=== PATIENT | female | born 1945 | race Caucasian/White ===

== ENCOUNTER 2023-02-20 18:38 | Emergency (ER) | payer OTHER, BC ==
[2023-02-20 19:09] VITALS: TEMP 98; BMI 35.4
[2023-02-20] MEDS ORDERED: AZITHROMYCIN 500 MG TABLET PO ONE (19:10)
[2023-02-20] MEDS ORDERED: AZITHROMYCIN 250 MG TABLET ONE (19:32)
[2023-02-20 19:52] LABS: HEMATOCRIT 41.8 % (32.4-45.2); HEMOGLOBIN 14.3 G/dL (10.7-15.3); MCH 31.2 pg (25.7-33.7); MCHC 34.1 g/dl (32.0-36.0); MEAN CELL VOLUME 91.4 fl (80-96); MEAN PLT VOLUME 8.4 fl (7.5-11.1); RBC 4.57 10^6/uL (3.60-5.2); RDW 14.5 % (11.6-15.6); WHITE BLOOD COUNT 9.5 10^3/uL (4.0-10.8)
[2023-02-20 20:01] LABS: ALBUMIN 3.9 g/dl (3.4-5.0); BILIRUBIN,TOTAL 0.6 mg/dl (0.2-1); CALCIUM 9.8 mg/dl (8.5-10); CREATININE 0.7 mg/dl (0.55-1.3); TOT PROT 6.8 g/dl (6.4-8.2)
[2023-02-20] MEDS ORDERED: methylPREDNISolone NA SUCC 125 MG/2 ML VIAL IVPB ONE (20:04)
[2023-02-20] MEDS ORDERED: methylPREDNISolone NA SUCC 125 MG/2 ML VIAL ONE (20:11)
[2023-02-20] MEDS ORDERED: ALBUTEROL SO4 2.5/IPRATROPIUM 0.5 INH SOL 3 ML VIAL.NEB. NEB STA (20:31)
[2023-02-20] MEDS ORDERED: ALBUTEROL SO4 2.5/IPRATROPIUM 0.5 INH SOL 3 ML VIAL.NEB. NEB ONE (20:33)
[2023-02-20 21:09] VITALS: BP 122/84; PULSE 87; RESP 22
[2023-02-20 21:42] LABS: VENOUS BASE EXCESS -1.1 mmol/L (-2-2); VENOUS PCO2 42.2 mmHg (38-52); VENOUS PH 7.375 (7.310-7.410)
== END 2023-02-20 22:42 | disposition left against medical advice (07) ==
LOC: FER 18:38
PROC: 3E0F7GC Introduction of Other Therapeutic Substance into Respiratory Tract, Via Natural or Artificial Opening (ICD-10-PCS; principal; 2023-02-20)
PROC: 3E033GC Introduction of Other Therapeutic Substance into Peripheral Vein, Percutaneous Approach (ICD-10-PCS; 2023-02-20)
DX: U07.1 COVID-19 (principal); I50.9 Heart failure, unspecified; R05.3 Chronic cough; R79.89 Other specified abnormal findings of blood chemistry
CPT/HCPCS: 0241U-QW; 36415; 71275-TC; 80053; 82550; 82803; 83605; 83880; 84484; 85027; 93005; 99285-25; Q9967

== ENCOUNTER 2025-03-31 04:05 | Emergency (ER) | payer OTHER, BC ==
[2025-03-31 04:18] VITALS: BP 141/59; PULSE 73; RESP 18; TEMP 98; BMI 37.2
== END 2025-03-31 05:21 | disposition home or self-care (01) ==
LOC: JER 04:05
DX: S09.90XA Unspecified injury of head, initial encounter (principal); W18.09XA Striking against other object with subsequent fall, initial encounter
CPT/HCPCS: 70450-TC; 72125-TC; 99284-25